=== PATIENT | male | born 1950 | race Caucasian/White ===

== ENCOUNTER 2022-08-23 00:59 | Emergency (ER) | payer MEDICARE, OTHER ==
[~2022-08-23] VITALS: Ht 75.6 cm; Wt 98.3 kg
[2022-08-23] MEDS ORDERED: LISI40TA9 PO (01:29)
[2022-08-23] MEDS ORDERED: INSU100V6 SC (01:29)
[2022-08-23] MEDS ORDERED: CARV12.53 PO (01:29)
[2022-08-23] MEDS ORDERED: AMLO-251 PO (01:29)
[2022-08-23] MEDS ORDERED: SIMV40TA25 PO (01:29)
[2022-08-23] MEDS ORDERED: INSU100V16 (01:30)
[2022-08-23] MEDS ORDERED: cloNIDine 0.2 MG (CATAPRES) TAB PO ONE (01:45)
--- NOTE | 2022-08-23 01:48 | ED Cardiac General ---
History of Present Illness General Chief Complaint: Cardiac/General Problems Stated Complaint: HIGH BP Nursing Triage Note: PATIENT STATES UNABLE TO SLEEP DUE TO A PANIC ATTACK. STATES TOOK HIS BP AND IT WAS HIGH 172/104. PATIENT CONCERNED. SYMPTOMS OF LIGHT HEADEDNESS. DENIES CHEST PAIN. PATIENT STATES HX OF PANIC ATTACKS. DOES NOT TAKE ANYTHING FOR THEM. Source: patient Exam Limitations: no limitations History of Present Illness Date Seen by Provider: Aug 23, 2022 Time Seen by Provider: 01:15 Initial Comments Patient is a 72-year-old male with history of hypertension, diabetes, and anxiety. Patient states he woke this evening with a panic attack with feelings of impending doom. He jumped out of bed and noticed that his heart racing and took his blood pressure which has systolic blood pressure 170. He checked his blood sugar which was 260. Took 2 melatonin without improvement. He has previously been on Xanax for this condition, which he is used in the past location but has run out medication. He denies chest pain, shortness of breath, headache, change in vision, nausea vomiting or sweats. No fever or chills. Patient states became concerned that his blood pressure was elevated to have things evaluated. No other acute symptoms or complaints. Timing/Duration: 1 hour Severity: moderate Location: other Activities at Onset: other Prior CP/Workup: other Modifying Factors: improves with other Associated Systoms: Other Allergies and Home Medications Allergies Coded Allergies: No Known Drug Allergies (Unverified , 08/23/22) Patient Home Medication List Home Medication List Reviewed: Yes Amlodipine Besylate (Amlodipine Besylate) 10 Mg Tablet, 10 MG PO DAILY, (Repor ward) Entered as Reported by: NANDO CRAMER on 08/23/22128 Last Action: New Order Carvedilol (Carvedilol) 12.5 Mg Tablet, 12.5 MG PO BID, (Reported) Entered as Reported by: NANDO CRAMER on 08/23/22128 Last Action: New Order Insulin Aspart (Novolog) 100 Unit/Ml Susp, (Reported) Entered as Reported by: NANDO CRAMER on 08/23/22129 Last Action: New Order Insulin Glargine,Hum.rec.anlog (Lantus) 100 Unit/Ml Vial, 25 UNITS SC AC, (Reported) Entered as Reported by: NANDO CRAMER on 08/23/22128 Last Action: New Order Lisinopril (Lisinopril) 40 Mg Tablet, 40 MG PO DAILY, (Reported) Entered as Reported by: NANDO CRAMER on 08/23/22128 Last Action: New Order Simvastatin (Simvastatin) 40 Mg Tablet, 40 MG PO HS, (Reported) Entered as Reported by: NANDO CRAMER on 08/23/22128 Last Action: New Order Review of Systems Review of Systems Constitutional: see HPI EENTM: See HPI Respiratory: See HPI Cardiovascular: See HPI Gastrointestinal: See HPI Genitourinary: See HPI Musculoskeletal: see HPI Skin: see HPI Psychiatric/Neurological: See HPI Endocrine: See HPI Hematologic/Lymphatic: See HPI All Other Systems Reviewed Negative Unless Noted: No Past Wmjakth-Ypsmbn-Ztppmz Hx Patient Social History Tobacco Use?: No Substance use?: No Alcohol Use?: No Immunizations Up To Date Influenza Vaccine Up-to-Date: Yes; Up-to-Date First/Initial COVID19 Vaccinat: 2019 Second COVID19 Vaccination Sherif: 2020 Past Medical History Surgery/Hospitalization HX: INSULIN DEP. DIABETIC, HTN, 6 VESSEL BYPASS, PANIC ATTACKS Physical Exam Vital Signs Vital Signs - First Documented 08/23/22 01:12 Temp 36.7 Pulse 71 Resp 16 B/P (MAP) 182/83 (116) Pulse Ox 97 O2 Delivery Room Air Capillary Refill : Less Than 3 Seconds Height, Weight, BMI Height: '" Weight: lbs. oz. kg; 171.00 BMI Method: General Appearance: No Apparent Distress, WD/WN, Anxious HEENT: PERRL/EOMI Neck: Normal Inspection Respiratory: Chest Non Tender, Lungs Clear Cardiovascular: Regular Rate, Rhythm Gastrointestinal: Soft Extremity: Non Tender Neurologic/Psychiatric: Alert, Oriented x3 Skin: Warm/Dry Focused Exam Sepsis Stage: Ruled Out Progress/Results/Core Measures Results/Orders My Orders Orders - LINO MALONE DO Clonidine Tablet (Catapres Tablet) (08/23/22 01:45) Vital Signs/I&O 08/23/22 08/23/22 01:12 01:26 Temp 36.7 Pulse 71 73 Resp 16 18 B/P (MAP) 182/83 (116) 158/85 (109) Pulse Ox 97 97 O2 Delivery Room Air Room Air Blood Pressure Mean: 109 Departure Communication (Admissions) Patient with clinical anxiety attack with blood pressure 170s over 90s. No chest pain palpitation shortness of breath NAD. Blood sugar 100s. Clonidine given for anxiety, sleep induction and treatment of transitory elevation of blood pressure. Patient reassured. Recommendations are for him to come home and sleep. Will defer further management of chronic anxiety and pain to your PCP. Impression Primary Impression: Anxiety attack Disposition: HOME, SELF-CARE Condition: Stable Departure-Patient Inst. Decision time for Depature: 01:48 Referrals: ALVARO STEPHENS APRN (PCP/Family) Primary Care Physician Patient Instructions: Anxiety, Adult (DC) Add. Discharge Instructions: You were evaluated in the emergency department for panic and anxiety attacks. Please go home and take 2 additional melatonin and rest. Check blood pressure and follow-up with your PCP early next week for reevaluation of management of chronic anxiety. In the meantime, if you develop new or concerning symptoms return to the ED. All discharge instructions reviewed with patient and/or family. Voiced understanding. LINO MALONE DO Aug 23, 2022 01:48
[2022-08-23 02:00] VITALS: BP 166/79
== END 2022-08-23 02:00 | disposition home or self-care (01) ==
LOC: ER FS 01:02
DX: F41.9 Anxiety disorder, unspecified (principal); I10 Essential (primary) hypertension; E11.9 Type 2 diabetes mellitus without complications
CPT/HCPCS: 82947

== ENCOUNTER 2022-09-05 22:17 | Emergency (ER) | payer MEDICARE, OTHER ==
[~2022-09-05] VITALS: Ht 182 cm; Wt 98.4 kg
[~2022-09-05 22:17] MED LIST: AMLO-251 PO; CARV12.53 PO; INSU100V16; INSU100V6 SC; LISI40TA9 PO; SIMV40TA25 PO
--- NOTE | 2022-09-05 22:38 | ED General ---
General Stated Complaint: HP BP Source of Information: Patient Exam Limitations: No Limitations History of Present Illness Date Seen by Provider: Sep 05, 2022 Time Seen by Provider: 22:33 Initial Comments Patient is a 72 yo male with with a history of anxiety, hypertension and insulin-dependent diabetes who presents with difficulty sleeping secondary to anxiety. Patient also states he was working outdoors today and felt chilled this evening. He did not take his temperature but did check his blood pressure which was 180s over 120s. His blood sugar was 257. Patient denies chest pain palpitation shortness of breath headache or change in vision. Patient did have multiple drinks of wine earlier this evening. He was unable to sleep to help melatonin which has not helped. No other symptoms or complaints. Timing/Duration: 1-3 Hours Severity: Mild Modifying Factors: improves with Other Allergies and Home Medications Allergies Coded Allergies: No Known Drug Allergies (Unverified , 08/23/22) Patient Home Medication List Home Medication List Reviewed: Yes Amlodipine Besylate (Amlodipine Besylate) 10 Mg Tablet, 10 MG PO DAILY, (Reported) Entered as Reported by: NANDO CRAMER on 08/23/22128 Carvedilol (Carvedilol) 12.5 Mg Tablet, 12.5 MG PO BID, (Reported) Entered as Reported by: NANDO CRAMER on 08/23/22128 Insulin Aspart (Novolog) 100 Unit/Ml Susp, (Reported) Entered as Reported by: NANDO CRAMER on 08/23/22 013 Insulin Glargine,Hum.rec.anlog (Lantus) 100 Unit/Ml Vial, 25 UNITS SC AC, (Reported) Entered as Reported by: NANDO CRAMER on 08/23/22128 Lisinopril (Lisinopril) 40 Mg Tablet, 40 MG PO DAILY, (Reported) Entered as Reported by: NANDO CRAMER on 08/23/22128 Simvastatin (Simvastatin) 40 Mg Tablet, 40 MG PO HS, (Reported) Entered as Reported by: NANDO CRAMER on 08/23/22128 Review of Systems Review of Systems Constitutional: see HPI EENTM: see HPI Gastrointestinal: see HPI Musculoskeletal: see HPI Skin: see HPI Psychiatric/Neurological: See HPI Hematologic/Lymphatic: See HPI Immunological/Allergic: see HPI All Other Systems Reviewed Negative Unless Noted: No Past Egwlylm-Lykxip-Bwsded Hx Patient Social History Tobacco Use?: No Immunizations Up To Date First/Initial COVID19 Vaccinat: 2020 Second COVID19 Vaccination Sherif: 2020 Past Medical History Surgery/Hospitalization HX: INSULIN DEP. DIABETIC, HTN, 6 VESSEL BYPASS, PANIC ATTACKS Physical Exam Vital Signs Capillary Refill : Height, Weight, BMI Height: '" Weight: lbs. oz. kg; 171.00 BMI Method: General Appearance: No Apparent Distress, WD/WN Eyes: Bilateral Eye Normal Inspection, Bilateral Eye PERRL, Bilateral Eye EOMI HEENT: PERRL/EOMI, Normal ENT Inspection, Pharynx Normal, Moist Mucous Membranes Neck: Full Range of Motion, Normal Inspection Respiratory: Chest Non Tender, Normal Breath Sounds, No Accessory Muscle Use Cardiovascular: Regular Rate, Rhythm Gastrointestinal: Non Tender, Soft Neurologic/Psychiatric: Alert, Oriented x3, No Motor/Sensory Deficits, Normal Mood/Affect Skin: Normal Color, Warm/Dry Focused Exam Sepsis Stage: Ruled Out Progress/Results/Core Measures Suspected Sepsis SIRS Temperature: Pulse: Respiratory Rate: Blood Pressure / Mean: Results/Orders Vital Signs/I&O Capillary Refill : Departure Communication (Admissions) Patient is physical exam is reassuring. Blood pressure is 140s over 80s. Acute spoke with the patient regarding appropriate [id number]-[id number] sleep aids gave recommendations. Benadryl given in the ED as the patient did not have it available at home. Recommendations are to follow-up with PCP. Impression Primary Impression: Anxiety attack Disposition: 01 HOME, SELF-CARE Condition: Stable Departure-Patient Inst. Decision time for Depature: 23:04 Referrals: ALVARO STEPHENS APRN (PCP/Family) Primary Care Physician Patient Instructions: Anxiety, Adult ED Add. Discharge Instructions: You were evaluated in the emergency department with difficulty sleeping related to anxiety. Please follow-up with your PCP for further management of anxiety. For insomnia, Benadryl, melatonin, valerian root or CBD oil may be helpful. Please follow-up with your PCP for additional recommendations. LINO MALONE DO Sep 05, 2022 22:38
[2022-09-05 23:15] VITALS: BP 141/70
[2022-09-05] MEDS ORDERED: diphenhydrAMINE 25 MG TAB (BENADRYL) PO ONE (23:15)
== END 2022-09-05 23:20 | disposition home or self-care (01) ==
LOC: EDUNIT# 22:17 → ER FS 22:21
DX: F41.1 Generalized anxiety disorder (principal); E11.9 Type 2 diabetes mellitus without complications; Z28.310 Unvaccinated for COVID-19; Z79.4 Long term (current) use of insulin
CPT/HCPCS: 99283